=== PATIENT | male | born 1975 | race Caucasian/White ===

== ENCOUNTER 2019-07-06 16:06 | Emergency (ER) | payer OTHER, SELFPAY ==
[2019-07-06] VITALS (9 sets, daily range): BP systolic 139–164; BP diastolic 94–102; PULSE 97; RESP 12; TEMP 36.9; O2SAT 97–100; BMI 34.7
--- NOTE | 2019-07-06 17:39 | W.ED.GENADLT ---
HPI - General Adult General: Chief complaint: General Medical Stated complaint: abscess Time Seen by Provider: 07/06/19 17:27 History of Present Illness: HPI narrative: Patient complains about swollen testicles times couple days. Started with a small pimples on the base of his testicular sac and now the whole testicle area swollen tender to the touch complaint: Abscess Onset (ago): day(s) Location: genitals Radiation: non-radiation Severity scale (1-10): 6 Quality: aching Pain Consistency: constant Relieving factors: none Associated symptoms: Reports no associated symptoms; Deny chest pain, dyspnea, headache(s), nausea, rash or vomiting Review of Systems Const: Denies: fever(s), chills or body aches Eyes: Denies: change in vision or blurry vision ENMT: Denies: throat pain or nasal congestion Card: Denies: chest pain or dyspnea on exertion Resp: Denies: dyspnea, productive cough or non-productive cough GI: Denies: abdominal pain, nausea or vomiting : Denies: difficulty urinating Musc: Denies: extremity pain Skin/Breast: Reports: other (Abscess to the scrotal sac down the right side tender to the touch patient states swelled quickly over the last couple days started with pimples a few days ago); Denies: rash Neuro: Denies: headache(s) Psych: Denies: anxiety or depression Wiley/Lymph: Denies: easy bruising PFSH ED PFSH: Social History Smoking and tobacco status: never smoked Physical Exam Const: COMMON NORMALS: no acute distress, average body habitus and patient oriented x3 HENMT: COMMON NORMALS: normocephalic HEAD & SCALP: normal to inspection and normocephalic FACE & SINUS: normal facial exam Eye: COMMON NORMALS: conjunctivae normal GENERAL EYE: appearance normal, both eyes and all related structures CONJUNCTIVA: Yes conjunctivae normal Neck/C-Spine: COMMON NORMALS: no JVD Chest: COMMONS NORMALS: normal inspection of the chest Resp: COMMON NORMALS: normal respiratory effort and clear to auscultation bilaterally AUSCULTATION: clear to auscultation bilaterally Cardio: COMMON NORMALS: no JVD, regular rate and regular rhythm RATE: regular rate RHYTHM: regular rhythm GI: COMMON NORMALS: Normal to inspection, nondistended, normoactive bowel sounds present Extremity: COMMON NORMALS: normal to inspection and full ROM Neuro: COMMON NORMALS: patient oriented x3 Skin: NARRATIVE SKIN EXAM: Scrotal sac is markedly swelled tender to touch on the right side of the scrotum down to the base does have a couple what appear to be abscesses Course Vital Signs: Vital signs: Vital Signs Temperature 98.4 F 07/06/19 16:38 Pulse Rate 97 07/06/19 16:38 Respiratory Rate 12 07/06/19 16:38 Blood Pressure 164/94 07/06/19 16:38 Pulse Oximetry 99 07/06/19 16:38 MDM - General Adult MDM Narrative: Medical decision making narrative: I made a small incision down to the base of this scrotal sac on the right side where there appeared to be a couple pimples and an abscess I numbed with lidocaine after prepping sterilely with Betadine only return blood from the incision no pustular contents was obtained I aborted the procedure at that time and ordered ultrasound Discharge Plan Discharge Patient Disposition: Home, Self-Care Clinical Impression: Orchiditis, Epididymitis Condition: Stable Prescriptions: New doxycycline hyclate 100 mg tablet 100 mg PO BID 10 Days Qty: 20 RF: 0 hydrocodone-acetaminophen 7.5-325 mg tablet 1 tab PO Q6H PRN (Reason: pain) Qty: 14 RF: 0 No Action Aleve 220 mg Tablet 440 mg PO PRN PRN (Reason: Pain) RF: 0 Discharge Orders: Discharge Order (Routine); Ordered 07/06/19 Ordered By: Jose E Hernandez Discharge Diet: Usual diet Discharge Activity: Increase activity as tolerated Patient Instructions: Epididymo-orchitis (ED) Activity Restrictions/Additional Instructions: Follow-up with medical provider as directed. Take medications as prescribed. Return to the ER or your medical provider if condition worsens. Please read and understand discharge instructions. If any questions ask please. 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
[2019-07-06] MEDS: HYDROcodone-acetaminophen 5-325 mg Tablet 1 TAB PO (17:43)
[2019-07-06] MEDS: lidocaine 1% INJ 20 mL 3 ML INTRADERMA (17:44)
--- NOTE | 2019-07-06 17:54 | USR_ITS ---
PROCEDURE INFORMATION: Exam: US Scrotum Exam date and time: 07/06/2019 7:05 PM Age: 43 years old Clinical indication: Swelling, testicles or scrotum; Scrotum pain; Patient HX: Area lanced in er this evening. Poaterior, inferior and on the right side. ; Additional info: Pain/swelling TECHNIQUE: Imaging protocol: Real-time ultrasound of the scrotum and contents with color Doppler and image documentation. COMPARISON: No relevant prior studies available. FINDINGS: Right testicle: The right testicle demonstrates increased blood flow compatible with orchitis. The right testicle is homogeneous in echogenicity. The right testicle measures 2.8 x 4.5 x 2.7 cm. Left testicle: The left testicle demonstrates normal blood flow. The left testicle measures 2.6 x 4.3 x 3.2 cm. The left testicle is homogeneous in echogenicity. Epididymides: The right epididymis demonstrates increased color flow compatible with right epididymitis. There are several tiny right epididymal cysts measuring less than 2 mm in size. The left epididymis demonstrates normal color flow. Tiny left epididymal cysts are noted measuring less than 2 mm in size. Scrotum: There is thickening of the scrotal wall. There is a left small hydrocele. There is a tiny right hydrocele. No right scrotal mass. The left scrotal wall is thickened and appears edematous concerning for scrotal wall cellulitis. No fluid collection or abscess is identified in the scrotal wall. US/US scrotum [id number] IMPRESSION: 1. Right epididymitis and orchitis. 2. Thickened echogenic scrotal wall with edema compatible with scrotal wall cellulitis without abscess. 3. Unremarkable left testicle and epididymis. No torsion, epididymitis or orchitis. 4. Small hydroceles.
[2019-07-06 19:40] LABS: Basophils % 0.1 %; Eosinophils # 0.1 10^3/uL (0.0-0.8); Eosinophils % 0.3 %; Hematocrit 43.2 % (42.0-52.0); Hemoglobin 14.3 g/dL (11.7-16.6); Lymphocytes % 5.6 %; Mean Corpuscular HGB Conc 33.1 g/dL (30.0-36.0); Mean Corpuscular Volume 93.5 fL (80-94); Mean Platelet Volume 10.6 fL (7.4-10.4); Monocytes # 0.9 10^3/uL (0.2-0.9); Monocytes % 5.3 %; Neutrophils # 15.5 10^3/uL (1.8-7.7); Nucleated Red Blood Cells % 0 %; Platelet Count 213 10^3/cmm (130-400); Red Blood Count 4.62 10^6/uL (4.1-5.3); Red Cell Distribution Width 12.1 % (12.1-15.1); White Blood Count 17.6 10^3/uL (4.0-10.0)
[2019-07-06] MEDS: HYDROcodone-acetaminophen 7.5-325 mg Tablet 2 TAB PO (19:49)
[2019-07-06] MEDS: cefTRIAXone 1,000 mg SDV 1000 MG IM (19:49)
== END 2019-07-06 20:34 | disposition home or self-care (01) ==
PROVIDERS: Emergency Provider Nurse Practitioner Family
DX: N45.3 Epididymo-orchitis (principal)
CPT/HCPCS: 12345; 76870; 85025; 96372; 99281; 99283; J0696; J2001

== ENCOUNTER → 2020-08-24 15:23 | Outpatient (BNVA) | payer OTHER, SELFPAY | PROVIDERS: Visit Provider Nurse Practitioner Family | DX: Z20.822 Contact with and (suspected) exposure to COVID-19 (principal) | CPT/HCPCS: 87635 ==

== ENCOUNTER 2025-02-06 11:05 | Emergency (ER) | payer SELFPAY ==
--- OUTSIDE RECORDS SUMMARY | 2025-02-06 11:10 | XMS_ITS | Clinical Summary ---
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 Name Role Phone Unavailable Primary Care Provider Unavailabl e Social History Tobacco Use Types Packs/Day Years Used Date Smoking Tobacco: Never Assessed Sex and Gender Information Value Date Recorded Sex Assigned at Not on file Legal Sex Male 3:23 PM CDT Gender Identity Not on file Sexual Orientation Not on file Plan of Treatment Health Maintenance Due Date Last Done Comments DTAP/TDAP/TD VACCINES (1 - Tdap) 1992 HEPATITIS B VACCINES (1 of 3 - 19+ 3-dose series) 08/12 COLORECTAL SCREENING 2018 Colorectal Cancer Screening 2018 FIT-DNA Q 3 years 2018 FIT/FOBT Q 1 year 2018 Flex Sig/CT Colonography Q 5 years 2018 ZOSTER VACCINE (1 of 2) 08/31/2023 INFLUENZA VACCINE (#1) 2024 Insurance [employer] PPO
[2025-02-06 11:11] VITALS: BP 171/101; PULSE 78; RESP 18; TEMP 36.3; O2SAT 98; BMI 38.5
--- NOTE | 2025-02-06 11:14 | USR_ITS ---
PROCEDURE INFORMATION: Exam: US Duplex Right Lower Extremity Veins, Limited Exam date and time: 02/06/2025 12:29 PM Age: 49 years old Clinical indication: Edema, localized; Lower extremity, right; Additional Info: leg swelling TECHNIQUE: Imaging protocol: Real-time duplex ultrasound of the right extremity with 2-D beltre scale, color Doppler flow and spectral waveform analysis including responses to compression and other maneuvers (when performed) with image documentation. Limited exam was focused on the right lower extremity veins. COMPARISON: US scrotum [id number] 07/06/2019 6:48 PM FINDINGS: Right deep veins: Unremarkable. The common femoral, femoral, proximal profunda femoral and popliteal veins are patent without thrombus. Normal Doppler waveforms. Normal compressibility and/or augmentation response. Superficial veins: Greater saphenous vein at the saphenofemoral junction is patent without thrombus. Soft tissues: Subcutaneous edema in the soft tissues [id number]. US/[place] [id number] IMPRESSION: No evidence of deep vein thrombosis.
--- NOTE | 2025-02-06 11:16 | ED_ITS ---
HPI - Extremity Problem 2 General: Chief complaint: Extremity Problem,Nontraumatic Stated complaint: rt foot swollen (7xdays) Time Seen by Provider: 02/06/25 11:06 Source: patient Mode of arrival: ambulatory Limitations: no limitations History of Present Illness: 49-year-old male states that he has been having swelling along with pain in his right leg. States he started ankle and has worked up his leg. Denies any fever states the pain is a 6 out of 10 he denies any recent injuries denies any history of blood clots in the past. Related Data Home Medications ?Medication ?Instructions ?Recorded ?Confirmed naproxen sodium 220 mg tablet 440 mg PO PRN PRN Pain 0 07/06/19 08/24/20 (Aleve) Previous Rx's ?Medication ?Instructions ?Recorded albuterol sulfate 90 mcg/actuation 2 puff inhalation Q 6H PRN 08/27/20 aerosol inhaler shortness of breath or wheez ing #8.5 grams azithromycin 250 mg tablet See Rx Instructions PO .COM PLEX #6 08/27/20 tabs mafpatrwtilcxsz-fywldyeglcepnzn-OM 7.5 ml PO Q6H PRN c old symptoms 08/27/20 2 mg-30 mg-10 mg/5 mL oral syrup #160 mL (Bromfed DM) ondansetron 4 mg disintegrating 4 mg PO Q6H PRN nausea and 08/27/20 tablet vomiting #12 tabs prednisone 20 mg tablet 20 mg PO DAILY 5 days #5 tab s 08/27/20 cephalexin 500 mg capsule 500 mg PO TID 7 days #21 cap s 02/06/25 hydrocodone 5 mg-acetaminophen 325 1 tab PO Q8H PRN pa in #14 tabs 02/06/25 mg tablet naproxen 500 mg tablet (Naprosyn) 500 mg PO BID PRN pa in #20 tabs 02/06/25 sulfamethoxazole 800 1 tab PO BID 10 days #20 tab s 02/06/25 mg-trimethoprim 160 mg tablet (Bactrim DS) Allergies Allergy/AdvReac Type Severity Reaction Status Date / Time Penicillins Allergy Unknown Verified 02/06/25 11:14 Review of Systems 2 Musc: Reports: extremity swelling PFSH ED 2 PFSH: Social History Smoking and tobacco/nicotine status: never used tobacco/nicotine Physical Exam 2 Const: COMMON NORMALS: no acute distress, patient oriented x3 and healthy appearing HENMT: COMMON NORMALS: normocephalic and atraumatic HEAD & SCALP: n ormocephalic and atraumatic Neck/C-Spine: COMMON NORMALS: full ROM and supple Chest: COMMONS NORMALS: normal inspection of the chest Resp: COMMON NORMALS: normal respiratory effort Cardio: COMMON NORMALS: regular rate, regular rhythm and No murmurs present (Cardio) RATE: regular rate RHYTHM: regular rhythm Extremity: COMMON NORMALS: full ROM NARRATIVE EXTREMITY EXAM: Swelling tenderness noted right lower leg distal pulses intact slight warmth to touch over foot no obvious rash Neuro: COMMON NORMALS: patient oriented x3, moves all extremities and no focal motor deficits Psych: COMMON NORMALS: mental status grossly normal, Normal thought process present and cooperative THOUGHT PROCESS: Normal thought process present Skin: COMMON NORMALS: no rashes or lesions noted and no wounds GENERAL SKIN EXAM: no rashes or lesions noted Course 2 Vital Signs: Vital signs: Vital Signs Temperature 97.4 F L 02/06/25 11:11 Pulse Rate 65 02/06/25 12:50 Respiratory Rate 18 02/06/25 12:50 Blood Pressure 157/100 02/06/25 12:50 Pulse Oximetry 100 02/06/25 12:50 MDM - Extremity (Nontraumatic) Medical Decision Making 53-year-old male presents with right lower leg swelling along with pain and slight erythema to right foot with warmth to touch. Differential includes cellulitis, gout, arterial occlusion, DVT. Ultrasound showed no signs of DVT as distal pulses sensation intact no signs of arterial occlusion. Does have some warmth to touch his white count here was negative ESR and CRP mildly elevated x- rays foot interpreted by me showed some soft tissue edema no signs of osteomyelitis he has no signs of necrotizing fasciitis. He likely has a cellulitis did give him IV vancomycin here will place him on Keflex and Bactrim and get him follow-up with podiatry he is to return if worsening will prescribe him hydrocodone for home as well for pain and Naprosyn. He is to follow-up with podiatry and return if worsening I did go over all this with patient he understands agrees to plan Medical Records I reviewed the patient's medical records. Lab Data I reviewed the patient's lab results. 02/06/25 12:47 02/06/25 12:47 Radiology Impressions Venous Duplex 02/06/25 11:14 IMPRESSION: No evidence of deep vein thrombosis. Foot X-Ray 02/06/25 12:34 IMPRESSION: 1. No acute fracture or dislocation. 2. Moderate to severe soft tissue swelling without evidence of gas producing infection. Indeterminate etiology. Laboratory Results WBC 9.27 10^3/uL (3.29-11.43) 02/06/25 12:47 RBC 4.57 10^6/uL (3.85-5.65) 02/06/25 12:47 Hgb 14.20 g/dL (11.27-16.99) 02/06/25 12:47 Hct 42.6 % (37-53) 02/06/25 12:47 MCV 93.2 fl (82-101) 02/06/25 12:47 MCH 31.1 pg (27-33) 02/06/25 12:47 MCHC 33.3 g/dL (30-55) 02/06/25 12:47 RDW 13.5 % (12.1-15.1) 02/06/25 12:47 Plt Count 304 10^3/cmm (157-399) 02/06/25 12:47 MPV 9.8 fL (7.4-10.4) 02/06/25 12:47 Neut % (Auto) 77.1 % 02/06/25 12:47 Lymph % (Auto) 13.4 % 02/06/25 12:47 Robeson % (Auto) 5.8 % 02/06/25 12:47 Eos % (Auto) 3.0 % 02/06/25 12:47 Baso % (Auto) 0.6 % 02/06/25 12:47 Neut # (Auto) 7.14 10^3/uL (1.8-7.7) 02/06/25 12:47 Lymph # (Auto) 1.2 10^3/uL (0.8-4.8) 02/06/25 12:47 Robeson # (Auto) 0.5 10^3/uL (0.2-0.9) 02/06/25 12:47 Eos # (Auto) 0.3 10^3/uL (0.0-0.8) 02/06/25 12:47 Baso # (Auto) 0.1 10^3/uL (0.0-0.1) 02/06/25 12:47 Nucleated RBC % (auto) 0 % 02/06/25 12:47 Nucleated RBCs # 0.0 /100WBC 02/06/25 12:47 ESR 25 mm/hr (0-10) H 02/06/25 12:47 Sodium 137 mmol/L (136-145) 02/06/25 12:47 Potassium 3.4 mmol/L (3.5-5.1) L 02/06/25 12:47 Chloride 101 mmol/L (98-107) 02/06/25 12:47 Carbon Dioxide 26 mmol/L (22-29) 02/06/25 12:47 Anion Gap 13.4 (5-19) 02/06/25 12:47 BUN 9 mg/dL (6-20) 02/06/25 12:47 Creatinine 0.7 mg/dL (0.7-1.2) 02/06/25 12:47 GFR Calculation 118.9 mL/min (90-130) 02/06/25 12:47 Glucose 104 mg/dL (65-115) 02/06/25 12:47 Calculated Osmolality 283 mOsm/kg (285-295) L 02/06/25 12:47 Calcium 9.1 mg/dL (8.5-10.5) 02/06/25 12:47 Total Bilirubin 0.6 mg/dL (0.15-1.2) 02/06/25 12:47 AST 37 U/L (0-40) 02/06/25 12:47 ALT 41 U/L (0-41) 02/06/25 12:47 Alkaline Phosphatase 140 U/L (40-130) H 02/06/25 12:47 C-Reactive Protein 53.3 mg/L (0.0-4.9) H 02/06/25 12:47 Total Protein 7.1 g/dL (6.6-8.7) 02/06/25 12:47 Albumin 3.8 g/dL (3.5-5.2) 02/06/25 12:47 Globulin 3.3 g/dL (1.3-4.6) 02/06/25 12:47 All radiology interpretation(s) finalized by discharge Discharge Plan Discharge Patient Disposition: Home Clinical Impression: Right leg swelling Cellulitis Qualifiers: Site of cellulitis: extremity Site of cellulitis of extremity: lower extremity Laterality: right Qualified Code(s): L03.115 - Cellulitis of right lower limb Condition: Stable Prescriptions: New hydrocodone-acetaminophen 5-325 mg tablet 1 tab PO Q8H PRN (Reason: pain) Qty: 14 0RF sulfamethoxazole-trimethoprim [Bactrim DS] 800-160 mg tablet 1 tab PO BID 10 Days Qty: 20 0RF cephalexin 500 mg capsule 500 mg PO TID 7 Days Qty: 21 0RF naproxen [Naprosyn] 500 mg tablet 500 mg PO BID PRN (Reason: pain) Qty: 20 0RF No Action azithromycin 250 mg tablet See Rx Instructions PO .COMPLEX Qty: 6 0RF Rx Instructions: take 2 tablets today (day 1), then one tablet for 4 days (days 2-5) PO albuterol sulfate 90 mcg/actuation HFA aerosol inhaler 2 puff inhalation Q6H PRN (Reason: shortness of breath or wheezing) Qty: 8.5 0RF ampegvxnwynllsk-lfsavchvr-UZ [Bromfed DM] 2-30-10 mg/5 mL syrup 7.5 ml PO Q6H PRN (Reason: cold symptoms) Qty: 160 0RF ondansetron 4 mg tablet,disintegrating 4 mg PO Q6H PRN (Reason: nausea and vomiting) Qty: 12 0RF Rx Instructions: 340b please prednisone 20 mg tablet 20 mg PO DAILY 5 Days Qty: 5 0RF Aleve 220 mg Tablet 440 mg PO PRN PRN (Reason: Pain) Discharge Orders: Discharge ED (Routine); Ordered 02/06/25 Ordered By: Sherwin Baez Discharge Diet: Advance as tolerated Discharge Activity: Resume usual activity Patient Instructions: Cellulitis (ED), Leg Edema (ED) Print Language: Maltese Coding Level of Care Code 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
[2025-02-06] MEDS: HYDROcodone-acetaminophen 7.5-325 mg Tablet 1 TAB PO (11:18)
--- NOTE | 2025-02-06 12:34 | XRR_ITS ---
PROCEDURE INFORMATION: Exam: XR Right Foot Exam date and time: 02/06/2025 12:48 PM Age: 49 years old Clinical indication: Pain; Foot; Right; Additional Info: RT FOOT PAIN/SWELLING X 1 WEEK; NO KNOWN INJURY TECHNIQUE: Imaging protocol: Radiologic exam of the right foot. Views: 3 or more views. COMPARISON: [place] [id number] 02/06/2025 12:29 PM FINDINGS: Bones/joints: Ankle mortise is grossly intact. Tarsal bones are intact and normal in alignment. 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 Tiny plantar and large Achilles calcaneal spurs. Metatarsal bones are intact. Lisfranc joint is normal. Phalanges are unremarkable. Soft tissues: Mild soft tissue swelling around the ankle and moderate swelling around the dorsum of the foot. No abnormal soft tissue air or foreign body. XR/XR foot RT min 3V* [id number] IMPRESSION: 1. No acute fracture or dislocation. 2. Moderate to severe soft tissue swelling without evidence of gas producing infection. Indeterminate etiology.
[2025-02-06 12:50] VITALS: BP 157/100; PULSE 65; RESP 18; O2SAT 100; O2SAT 98
[2025-02-06] MEDS: morphine 4 mg/mL SDV 1 mL IVP (12:50)
[2025-02-06 12:53] LABS: Hematocrit 42.6 % (37-53); Hemoglobin 14.20 g/dL (11.27-16.99); Mean Corpuscular HGB Conc 33.3 g/dL (30-55); Mean Corpuscular Hemoglobin 31.1 pg (27-33); Mean Corpuscular Volume 93.2 fl (82-101); Nucleated Red Blood Cells % 0 %; Platelet Count 304 10^3/cmm (157-399); Red Blood Count 4.57 10^6/uL (3.85-5.65); White Blood Count 9.27 10^3/uL (3.29-11.43)
[2025-02-06 13:11] LABS: Alanine Aminotransferase 41 U/L (0-41); Albumin Level 3.8 g/dL (3.5-5.2); Alkaline Phosphatase 140 U/L (40-130); Anion Gap 13.4 (5-19); Aspartate Amino Transferase 37 U/L (0-40); Blood Urea Nitrogen 9 mg/dL (6-20); Calcium 9.1 mg/dL (8.5-10.5); Carbon Dioxide 26 mmol/L (22-29); Chloride 101 mmol/L (98-107); Globulin 3.3 g/dL (1.3-4.6); Glucose 104 mg/dL (65-115); Osmolality Calculated 283 mOsm/kg (285-295); Potassium 3.4 mmol/L (3.5-5.1); Sodium 137 mmol/L (136-145); Total Protein 7.1 g/dL (6.6-8.7)
[2025-02-06 14:57] VITALS: BP 162/100; PULSE 62; O2SAT 97
== END 2025-02-06 15:03 | disposition home or self-care (01) ==
PROVIDERS: Emergency Provider Emergency Medicine
DX: L03.115 Cellulitis of right lower limb (principal)
CPT/HCPCS: 73630; 80053; 85025; 85651; 86140; 93971; 96365; 96375; 99284; J2270; J3373; J7050; J9999